=== PATIENT | male | born 1965 | race Caucasian/White ===

== ENCOUNTER 2016-02-23 10:52 | Observation (INO) | payer BC ==
[2016-02-23] VITALS (8 sets, daily range): BP systolic 103–130; BP diastolic 33–76; PULSE 70–84; TEMP 37.1–37.9; O2SAT 92–99; Ht 170.2 cm; Wt 127.3 kg
[~2016-02-23] VITALS: Ht 170.2 cm; Wt 127.3 kg
[~2016-02-23 10:52] MED LIST: IBUP-103 PO
[2016-02-23] MEDS ORDERED: HYDROmorphone INJ 1 MG/ML SYR IV STA (11:01)
[2016-02-23] MEDS ORDERED: ONDANSETRON INJ 2 MG/ML 2 ML VIAL IV STA (11:01)
[2016-02-23] MEDS ORDERED: KETOROLAC TROMETHAMINE 30 MG/ML VIAL IV STA (11:01)
[2016-02-23] MEDS ORDERED: SODIUM CHLORIDE 0.9% 1000ML 1,000 ML IV STA (11:01)
[2016-02-23 11:28] LABS: BASO % 0.4 %; BASO ABS # 0.05 K/uL (0-0.2); COMPLETE YES; EOS % 0.4 %; HEMATOCRIT 46.9 % (42-52); IG% 0.3 %; LYMPH % 6.8 %; LYMPH ABS # 0.96 K/uL (1.2-3.4); MEAN CELL VOLUME 84.1 fL (80-100); MEAN CORPUSCULAR HGB CONC 34.5 g/dl (32-36); MEAN PLATELET VOLUME 9.3 fL (7.4-10.4); MONO % 9.4 %; NEUT % 82.7 %; PLATELET COUNT 309 K/uL (130-400); RED BLOOD COUNT 5.58 M/uL (4.7-6.1); WHITE BLOOD COUNT 14.05 K/uL (4.8-10.8)
[2016-02-23] MEDS ORDERED: OPTIRAY 320 IV PRN (11:30)
[2016-02-23 11:46] LABS: BUN/CREATININE RATIO 10.8 (10-20); CALCIUM 8.8 mg/dl (8.5-10.1); CREATININE 1.1 mg/dl (0.60-1.40); POTASSIUM 3.9 mmol/L (3.5-5.1)
--- NOTE | 2016-02-23 12:26 | DIAGNOSTIC IMAGING REPORT ---
ABDOMINAL ULTRASOUND, RIGHT UPPER QUADRANT HISTORY: h/o gallstones, epigastric pain. COMPARISON: Abdomen and pelvis CT 05/01/2015. FINDINGS: Pancreas: Obscured by overlying bowel gas. Liver: The liver is echogenic consistent with fatty change. Gallbladder: There are few small stones and sludge within the gallbladder. The technologist reported a negative sonographic Velásquez's sign. The gallbladder wall is borderline thickened. CBD: 6 mm. Right kidney: No hydronephrosis. IMPRESSION: 1. Borderline gallbladder wall thickening. There are few small stones and sludge within the gallbladder. 2. Normal caliber common bile duct measuring 6 mm. 3. Hepatic steatosis. 4. The pancreas was obscured by overlying bowel gas. Electronically signed by: Kaveh Gray M.D. 02/23/2016 12:24 PM Dictated Date/Time: 02/23/2016 12:21 PM
[2016-02-23 14:12] LABS: URINE APPEARANCE CLEAR (CLEAR); URINE BILIRUBIN NEG (NEG); URINE COLOR YELLOW; URINE NITRITE NEG (NEG); URINE SPECIFIC GRAVITY 1.013 (1.000-1.030); UROBILINOGEN NEG (NEG)
[2016-02-23 14:16] LABS: MANUAL MICROSCOPIC REQUIRED? NO; REVIEW REQ? NO
--- NOTE | 2016-02-23 14:16 | History and Physical ---
History & Physical Date & Time of Service: Feb 23, 2016 at 14:11 Chief Complaint: Stomach Pain Primary Care Physician: Mike Escobar M.D.(ALE) History of Present Illness 50 y/o wm with a several mos hx of epigastric/ruq pain after eating. has know gallstones. came to ER b/c this was the worst attack and it didn't subside Past Medical/Surgical History Medical Problems: (1) Diverticulitis Status: Chronic (2) Herniated cervical disc Status: Chronic Family History Patient reports no known family medical history. Social History Smoking Status: Never Smoker Smokeless Tobacco Use: Yes Alcohol Use: none Drug Use: none Occupational Status: employed Multi-Drug Resistant Organisms History of MDRO: No Allergies Coded Allergies: Ciprofloxacin (Verified Adverse Reaction, Unknown, nausea and vomiting, 02/23/16) Metronidazole (Verified Adverse Reaction, Unknown, nausea and vomiting, 02/23/16) Home Medications No Active Prescriptions or Reported Meds Review of Systems Abdomen: + nausea, + pain Physical Exam Vital Signs Date Time Temp Pulse Resp B/P Pulse Ox O2 Delivery O2 Flow Rate FiO2 02/23/16 13:39 74 20 157/67 98 Room Air 02/23/16 12:29 76 20 172/70 96 Room Air 02/23/16 10:54 37.5 81 18 139/76 95 General Appearance: no apparent distress Head: normocephalic, atraumatic Eyes: EOMI ENT: normal ENT inspection Neck: supple, no adenopathy Respiratory/Chest: lungs clear Cardiovascular: regular rate, rhythm, no edema Abdomen/GI: soft, + pertinent finding (RUQ/epigastic TTP. no g/r/r) Back: normal inspection Extremities/Musculoskelatal: normal inspection, no pedal edema Neurologic/Psych: no motor/sensory deficits, alert, oriented x 3 Skin: normal color, warm/dry Lymphatic: no adenopathy Diagnostics Laboratory Results Results Past 24 Hours Test 02/23/16 11:15 02/23/16 13:45 Range/Units White Blood Count 14.05 4.8-10.8 K/uL Red Blood Count 5.58 4.7-6.1 M/uL Hemoglobin 16.2 14.0-18.0 g/dL Hematocrit 46.9 42-52 % Mean Corpuscular Volume 84.1 80-100 fL Mean Corpuscular Hemoglobin 29.0 25-34 pg Mean Corpuscular Hemoglobin Concent 34.5 32-36 g/dl Platelet Count 309 130-400 K/uL Mean Platelet Volume 9.3 7.4-10.4 fL Neutrophils (%) (Auto) 82.7 % Lymphocytes (%) (Auto) 6.8 % Monocytes (%) (Auto) 9.4 % Eosinophils (%) (Auto) 0.4 % Basophils (%) (Auto) 0.4 % Neutrophils # (Auto) 11.63 1.4-6.5 K/uL Lymphocytes # (Auto) 0.96 1.2-3.4 K/uL Monocytes # (Auto) 1.32 0.11-0.59 K/uL Eosinophils # (Auto) 0.05 0-0.5 K/uL Basophils # (Auto) 0.05 0-0.2 K/uL RDW Standard Deviation 41.7 36.4-46.3 fL RDW Coefficient of Variation 13.6 11.5-14.5 % Immature Granulocyte % (Auto) 0.3 % Immature Granulocyte # (Auto) 0.04 0.00-0.02 K/uL Sodium Level 142 136-145 mmol/L Potassium Level 3.9 3.5-5.1 mmol/L Chloride Level 103 98-107 mmol/L Carbon Dioxide Level 28 21-32 mmol/L Anion Gap 11.0 3-11 mmol/L Blood Urea Nitrogen 12 7-18 mg/dl Creatinine 1.10 0.60-1.40 mg/dl Est Creatinine Clear Calc Drug Dose 101.8 ml/min Estimated GFR () 89.6 Estimated GFR (Non- 77.3 BUN/Creatinine Ratio 10.8 10-20 Random Glucose 113 70-99 mg/dl Calcium Level 8.8 8.5-10.1 mg/dl Total Bilirubin 0.8 0.2-1 mg/dl Direct Bilirubin 0.2 0-0.2 mg/dl Aspartate Amino Transf (AST/SGOT) 17 15-37 U/L Alanine Aminotransferase (ALT/SGPT) 36 12-78 U/L Alkaline Phosphatase 71 45-117 U/L Total Protein 7.3 6.4-8.2 gm/dl Albumin 3.9 3.4-5.0 gm/dl Lipase 201 73-393 U/L other (US: gallstones and thickened GB wall) Impression Assessment and Plan 1. acute calculous cholecystitis discussed options/risks ( bleeding/infection/dvt/pe/mi/injury to bile ducts or other organs etc...) answered questions he would like to proceed with lap vi/poss open VTE Prophylaxis VTE Risk Assessment Done? Y/N: Yes Risk Level: Low Given or contraindicated: Unfractionated heparin SQ, SCD's
[2016-02-23] MEDS: LACTATED RINGER'S 1000ML 1,000 ML IV SCH ×2 (14:17→22:12)
[2016-02-23] MEDS ORDERED: LIDOCAINE HCL 2% 2 ML VIAL (20MG/ML) ONE (14:30)
[2016-02-23] MEDS ORDERED: DEXAMETHASONE SOD INJ 4 MG/ML VIAL ONE (14:30)
[2016-02-23] MEDS ORDERED: PROPOFOL IV EMULSION 10 MG/ML 20 ML VIAL IV ONE (14:30)
[2016-02-23] MEDS ORDERED: ROCURONIUM BROMIDE 10 MG/ML 5 ML VIAL ONE (14:30)
[2016-02-23] MEDS ORDERED: ONDANSETRON INJ 2 MG/ML 2 ML VIAL ONE (14:30)
[2016-02-23] MEDS ORDERED: MIDAZOLAM HCL 1 MG/ML 2ML VIAL ONE (14:30)
[2016-02-23] MEDS ORDERED: FENTANYL CITRATE INJ 50 MCG/1 ML 2 ML VIAL ONE ×2 (14:30)
--- NOTE | 2016-02-23 14:33 | Discharge Instructions ---
Discharge Instructions Admission Reason for Admission: Stomach Pain Discharge Discharge Diagnosis / Problem: acute cholecystitis Discharge Goals Goal(s): Decrease discomfort, Improve function Activity Recommendations Activity Limitations: as noted below Lifting Limitations: no more than 10 pounds Exercise/Sports Limitations: until after follow-up appointment Shower/Bathe: tomorrow . Instructions / Follow-Up Instructions / Follow-Up call [phone] for f/u appointment with Dr. Ramirez in 1-2 weeks Current Hospital Diet Patient's current hospital diet: Discharge Diet Recommended Diet: Regular Diet Pending Studies Studies pending at discharge: yes (pathology report) List of pending studies: path report Medical Emergencies . Who to Call and When: Medical Emergencies: If at any time you feel your situation is an emergency, please call 911 immediately. . Non-Emergent Contact Non-Emergency issues call your: Primary Care Provider, Surgeon Call Non-Emergent contact if: temperature is above 101, your pain is not controlled, wound has increased drainage, wound has increased redness . "Provider Documentation" section prepared by Nabor Ramirez. VTE Core Measure Inpt VTE Proph given/why not?: Unfractionated heparin SQ, SCD's
[2016-02-23] MEDS ORDERED: HYDR-5688 PO (14:34)
[2016-02-23] MEDS ORDERED: ONDANSETRON INJ 2 MG/ML 2 ML VIAL IV PRN ×2 (14:45→16:30)
[2016-02-23] MEDS ORDERED: ATROPINE SULFATE 0.1 MG/ML 5ML SYR IV PRN (14:45)
[2016-02-23] MEDS ORDERED: PHENYLEPHRINE 100MCG/ML 5ML SYR IV PRN (14:45)
[2016-02-23] MEDS ORDERED: EpHEDrine SULFATE INJ 50 MG/ML AMP IV PRN (14:45)
[2016-02-23] MEDS ORDERED: HYDROmorphone INJ 2 MG/ML SYR/VIAL IV PRN (14:45)
[2016-02-23] MEDS ORDERED: CEFAZOLIN SOD 1 GM VIAL ONE (14:54)
[2016-02-23] MEDS ORDERED: IV FLUIDS COMPLETED PRN (15:00)
[2016-02-23] MEDS ORDERED: HEPARIN SOD 5000 UNIT/0.5 ML CARP SQ SCH (15:00)
[2016-02-23] MEDS ORDERED: BUPIVACAINE/EPINEPHRINE 0.5% MPF 1:200,000 30 ML VIAL INJ ONE (16:04)
[2016-02-23] MEDS ORDERED: LACTATED RINGER'S 1000ML 1,000 ML IV SCH (16:19)
--- NOTE | 2016-02-23 16:24 | Anesthesiology Progress Note ---
Anesthesia Post Op Note Date & Time Feb 23, 2016 at 16:24 Vital Signs Pain Intensity: 3.0 Vital Signs Past 12 Hours Date Time Temp Pulse Resp B/P Pulse Ox O2 Delivery O2 Flow Rate FiO2 02/23/16 14:30 67 20 115/59 99 02/23/16 14:10 67 20 115/59 96 Room Air 02/23/16 13:39 74 20 157/67 98 Room Air 02/23/16 12:29 76 20 172/70 96 Room Air 02/23/16 10:54 37.5 81 18 139/76 95 Notes Mental Status: alert / awake / arousable, participated in evaluation Pt Amnestic to Procedure: Yes Nausea / Vomiting: adequately controlled Pain: adequately controlled Airway Patency, RR, SpO2: stable & adequate BP & HR: stable & adequate Hydration State: stable & adequate Anesthetic Complications: no major complications apparent
[2016-02-23] MEDS ORDERED: IBUPROFEN 600 MG TAB PO PRN (16:30)
[2016-02-23] MEDS ORDERED: MoRPHine SULFATE 4 MG/ML 1 ML CARP\\VIAL IV PRN (16:30)
[2016-02-23] MEDS ORDERED: OXYCODONE/ACETAMINOPHEN 5-325 TAB PO PRN (16:30)
[2016-02-23] MEDS ORDERED: MoRPHine SULFATE 10 MG/ML CARP/VIAL IV PRN (16:30)
--- NOTE | 2016-02-23 16:42 | [facility] Operative Report ---
Operative Report Operative Date Feb 23, 2016. Pre-Operative Diagnosis Acute calculous cholecystitis Post-Operative Diagnosis acute cholecystitis Procedure(s) Performed lap vi Surgeon Dr. Ramirez Estimated Blood Loss 30 ml Findings acutely inflammed gallbladder Specimens A: gallbladder Anesthesia GET Complication(s) None Disposition Recovery Room / PACU I attest to the content of the Intraoperative Record and any orders documented therein. Any exceptions are noted below.
[2016-02-23 17:25] LABS: PROTHROMBIN TIME (PATIENT) 11.1 SECONDS (9.0-12.0)
--- NOTE | 2016-02-23 17:38 | EMERGENCY ROOM VISIT NOTE ---
History Report prepared by Armando: Ria Nolan Under the Supervision of: Dr. Sherry Gabriel M.D. 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 He rates his pain as an 8/10 in severity. He notes, "I have 2 gallstones." He has not seen a surgeon for this. He is also experiencing nausea and vomiting. He denies chest pain. He has personal history of diverticulitis. 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 A total of 10 systems reviewed and were otherwise negative. Past Medical & Surgical Medical Problems: (1) Cholecystitis, acute (2) Diverticulitis (3) Herniated cervical disc Family History Patient reports no known family medical history. Social History Smoking Status: Unknown if Ever Smoked Alcohol Use: none Marital Status: Housing Status: lives with significant other Occupation Status: employed Current/Historical Medications Scheduled PRN Hydrocodone/Acetaminophen 5MG/325MG (Joppa 5MG/325MG), 1 TABLET PO Q4H PRN for Pain Allergies Coded Allergies: Ciprofloxacin (Verified Adverse Reaction, Unknown, nausea and vomiting, 02/23/16) Metronidazole (Verified Adverse Reaction, Unknown, nausea and vomiting, 02/23/16) Physical Exam Vital Signs Date Time Temp Pulse Resp B/P Pulse Ox O2 Delivery O2 Flow Rate FiO2 02/23/16 14:10 67 20 115/59 96 Room Air 02/23/16 13:39 74 20 157/67 98 Room Air 02/23/16 12:29 76 20 172/70 96 Room Air 02/23/16 10:54 37.5 81 18 139/76 95 Physical Exam CONSTITUTIONAL: The patient is in moderate painful and nauseous distress. HEENT: No icterus, moist mucous membranes NECK: No meningismus, trachea is midline. CARDIOVASCULAR: Regular rate, normal perfusion RESPIRATORY: Unlabored breathing. Clear to auscultation. GASTROINTESTINAL: Moderate to severe epigastric pain. GENITOURINARY: No flank tenderness MUSCULOSKELETAL: Full range of motion NEUROLOGIC: No acute gross focal deficits. PSYCHIATRIC: Normal affect SKIN: Normal for ethnicity. Medical Decision & Procedures ER Provider Diagnostic Interpretation: Radiology results as stated below per my review and radiologist interpretation. ABDOMINAL ULTRASOUND, RIGHT UPPER QUADRANT HISTORY: h/o gallstones, epigastric pain. COMPARISON: Abdomen and pelvis CT 05/01/2015. FINDINGS: Pancreas: Obscured by overlying bowel gas. Liver: The liver is echogenic consistent with fatty change. Gallbladder: There are few small stones and sludge within the gallbladder. The technologist reported a negative sonographic Velásquez's sign. The gallbladder wall is borderline thickened. CBD: 6 mm. Right kidney: No hydronephrosis. IMPRESSION: 1. Borderline gallbladder wall thickening. There are few small stones and sludge within the gallbladder. 2. Normal caliber common bile duct measuring 6 mm. 3. Hepatic steatosis. 4. The pancreas was obscured by overlying bowel gas. Electronically signed by: Kaveh Gray M.D. 02/23/2016 12:24 PM Dictated Date/Time: 02/23/2016 12:21 PM Laboratory Results 02/23/16 11:15 Red Blood Count 5.58, Mean Corpuscular Volume 84.1, Mean Corpuscular Hemoglobin 29.0, Mean Corpuscular Hemoglobin Concent 34.5, Mean Platelet Volume 9.3, Neutrophils (%) (Auto) 82.7, Lymphocytes (%) (Auto) 6.8, Monocytes (%) (Auto) 9.4, Eosinophils (%) (Auto) 0.4, Basophils (%) (Auto) 0.4, Neutrophils # (Auto) 11.63, Lymphocytes # (Auto) 0.96, Monocytes # (Auto) 1.32, Eosinophils # (Auto) 0.05, Basophils # (Auto) 0.05 02/23/16 11:15 Test 02/23/16 11:15 02/23/16 13:45 White Blood Count 14.05 K/uL (4.8-10.8) Red Blood Count 5.58 M/uL (4.7-6.1) Hemoglobin 16.2 g/dL (14.0-18.0) Hematocrit 46.9 % (42-52) Mean Corpuscular Volume 84.1 fL (80-100) Mean Corpuscular Hemoglobin 29.0 pg (25-34) Mean Corpuscular Hemoglobin Concent 34.5 g/dl (32-36) Platelet Count 309 K/uL (130-400) Mean Platelet Volume 9.3 fL (7.4-10.4) Neutrophils (%) (Auto) 82.7 % Lymphocytes (%) (Auto) 6.8 % Monocytes (%) (Auto) 9.4 % Eosinophils (%) (Auto) 0.4 % Basophils (%) (Auto) 0.4 % Neutrophils # (Auto) 11.63 K/uL (1.4-6.5) Lymphocytes # (Auto) 0.96 K/uL (1.2-3.4) Monocytes # (Auto) 1.32 K/uL (0.11-0.59) Eosinophils # (Auto) 0.05 K/uL (0-0.5) Basophils # (Auto) 0.05 K/uL (0-0.2) RDW Standard Deviation 41.7 fL (36.4-46.3) RDW Coefficient of Variation 13.6 % (11.5-14.5) Immature Granulocyte % (Auto) 0.3 % Immature Granulocyte # (Auto) 0.04 K/uL (0.00-0.02) Prothrombin Time 11.1 SECONDS (9.0-12.0) Prothromb Time International Ratio 1.0 (0.9-1.1) Activated Partial Thromboplast Time 25.2 SECONDS (21.0-31.0) Partial Thromboplastin Ratio 1.0 Anion Gap 11.0 mmol/L (3-11) Est Creatinine Clear Calc Drug Dose 101.8 ml/min Estimated GFR () 89.6 Estimated GFR (Non- 77.3 BUN/Creatinine Ratio 10.8 (10-20) Calcium Level 8.8 mg/dl (8.5-10.1) Total Bilirubin 0.8 mg/dl (0.2-1) Direct Bilirubin 0.2 mg/dl (0-0.2) Aspartate Amino Transf (AST/SGOT) 17 U/L (15-37) Alanine Aminotransferase (ALT/SGPT) 36 U/L (12-78) Alkaline Phosphatase 71 U/L (45-117) Total Protein 7.3 gm/dl (6.4-8.2) Albumin 3.9 gm/dl (3.4-5.0) Lipase 201 U/L (73-393) Urine Color YELLOW Urine Appearance CLEAR (CLEAR) Urine pH 5.0 (4.5-7.5) Urine Specific [place] 1.013 (1.000-1.030) Urine Protein NEG (NEG) Urine Glucose (UA) NEG (NEG) Urine Ketones NEG (NEG) Urine Occult Blood NEG (NEG) Urine Nitrite NEG (NEG) Urine Bilirubin NEG (NEG) Urine Urobilinogen NEG (NEG) Urine Leukocyte Esterase NEG (NEG) Labs reviewed by ED physician. Medications Administered Medications (Trade) Dose Ordered Sig/Bozena Route Start Time Stop Time Status Last Admin Dose Admin Hydromorphone HCl 1 mg 1 mg PRN STAT IV 02/23/16 11:01 02/23/16 11:03 DC 02/23/16 11:28 1 MG Sodium Chloride (Nss 1000ml) 1,000 ml @ 0 mls/hr Q0M STAT IV 02/23/16 11:01 02/23/16 11:03 DC 02/23/16 11:27 0 MLS/HR Ondansetron HCl (Zofran Inj) 4 mg NOW STAT IV 02/23/16 11:01 02/23/16 11:03 DC 02/23/16 11:27 4 MG Ketorolac Tromethamine (Toradol Inj) 30 mg NOW STAT IV 02/23/16 11:01 02/23/16 11:03 DC 02/23/16 11:28 30 MG ED Course 1059: Past medical records reviewed. The patient was evaluated in room A12B. A complete history and physical examination was performed. 1101: Toradol 30 mg IV, Zofran 4 mg IV, NSS 1000 ml wide open IV, Dilaudid 1 mg IV - PRN 1308: At this time I spoke with Dr. Ramirez of general surgery. We discussed the patient's results and treatment plan. He will evaluate the patient for further management. 1322: I reassessed the patient at this time. He is resting comfortably. I discussed the results and treatment plan with the patient. I answered all pertaining questions that he had. He expressed understanding and verbalized agreement. Medical Decision Differential diagnoses includes pancreatitis, cholecystitis, choledocholithiasis. 50-year-old with known history of gallstones presented to the emergency room for acute onset of moderate to severe epigastric and right upper quadrant pain associated with nausea and over the last day. He was noted to have an elevated white blood cell count as well as concerning ultrasound. Case was discussed with surgery on-call, Dr. Ramirez, who came to the ER to evaluate patient and make disposition. Impression Primary Impression: RUQ abdominal pain Additional Impression: Gallstone Scribe Attestation The scribe's documentation has been prepared under my direction and personally reviewed by me in its entirety. I confirm that the note above accurately reflects all work, treatment, procedures, and medical decision making performed by me. Departure Information Dispostion Being Evaluated By Surgeon Prescriptions Hydrocodone/Acetaminophen 5MG/325MG (Joppa 5MG/325MG) Tab 1 TABLET PO Q4H Y for Pain, #40 TAB Prov: Nabor Ramirez D.O. 02/23/16 Referrals No Doctor, Assigned (PCP) Patient Instructions A Signature Page
--- NOTE | 2016-02-23 19:02 | OPERATIVE REPORT ---
DATE OF OPERATION: 02/23/2016 PREOPERATIVE DIAGNOSIS: Acute cholecystitis. POSTOPERATIVE DIAGNOSIS: Same. PROCEDURE: Laparoscopic cholecystectomy. SURGEON: James. COMPLICATIONS: No immediate. ANESTHESIA: General. ESTIMATED BLOOD LOSS: 30 mL. OPERATIVE NOTE: After informed consent was obtained, the patient was taken to the operating suite, placed in supine position. After successful intubation, the abdomen was shaved and sterilely prepped and draped in usual fashion. A periumbilical incision made with an 11 blade scalpel and carried down through the soft tissue using electrocautery. The anterior rectus fascia was opened using electrocautery and two #0 Vicryl stay sutures were placed. Peritoneum was entered using blunt finger penetration. A finger sweep was performed to take down adhesions. A 12 mm Des trocar was placed and the abdomen was insufflated to 18 mmHg. Laparoscope was inserted and the abdomen examined 360 degrees. We placed a subxiphoid 5 mm port and 2 right upper quadrant 5 mm ports. The patient was placed in reverse Trendelenburg position slightly airplaned to the left. The gallbladder was very thickened and inflamed. We used a needle to drain some of the fluid out. We then grasped the gallbladder and elevated it superiorly and laterally. I used a [place] dissector as well as a suction display associate to gently tease down adhesions around the neck of the gallbladder. There was a rather anterior cystic artery and I was able to skeletonize this, clip it twice proximally once distally and transected using laparoscopic scissor. Once I did this, I was then able to slowly skeletonize the cystic duct as well. It was clipped 3 times proximally and one time distally and transected. The gallbladder was removed from the gallbladder fossa intact using an electrocautery. A small amount of bile did come out of one of the grasper hole site. We immediately suctioned this up and irrigated the right upper quadrant. Once it was discovered from the liver bed, we put into an EndoCatch bag. We thoroughly irrigated the right upper quadrant. At the end of the procedure, there was adequate hemostasis and no evidence of a bile leak. We did look around the abdomen briefly and saw no other gross abnormalities. The gallbladder was put into an EndoCatch bag and removed from the camera port site. All the trocars were removed and the abdomen was desufflated. The fascia of the camera port was closed using 0 Vicryl in a [id number] fashion. All wounds were irrigated and closed using 4-0 Monocryl. Marcaine was injected around them for postoperative analgesia and skin glue used as a dressing. The patient was awakened, extubated, and transferred to recovery in stable condition. I attest to the content of the Intraoperative Record and any orders documented therein. Any exceptio ns are noted below.
[2016-02-23] MEDS: CEFAZOLIN IV 1,000 MG in DEXTROSE 5% 50ML 50 ML IV SCH (21:30)
[2016-02-24 03:27] VITALS: BP 104/61; PULSE 72; TEMP 37.4; O2SAT 94
[2016-02-24] MEDS: CEFAZOLIN IV 1,000 MG in DEXTROSE 5% 50ML 50 ML IV SCH (05:27)
[2016-02-24] MEDS: LACTATED RINGER'S 1000ML 1,000 ML IV SCH (05:27)
[2016-02-24 07:46] VITALS: BP 121/71; PULSE 67; TEMP 37.4; O2SAT 91
[2016-02-24] MEDS ORDERED: ENOXAPARIN 40 MG/0.4 ML SYR SQ SCH (09:00)
--- NOTE | 2016-02-24 10:58 | Surgery Progress Note ---
Surgery Progress Note Date of Service Feb 24, 2016. Subjective Post OP Day: 1 + feeling well, + pain controlled feels well. eating. no issues. Objective Vital Signs: Date Time Temp Pulse Resp B/P Pulse Ox O2 Delivery O2 Flow Rate FiO2 02/24/16 07:46 37.4 67 18 121/71 91 Room Air 02/24/16 07:35 Room Air 02/24/16 03:27 37.4 72 16 104/61 94 BiPAP 02/24/16 00:36 Room Air 02/23/16 22:57 37.1 76 18 103/64 92 CPAP 02/23/16 20:30 37.5 84 18 124/70 93 Room Air 02/23/16 19:15 37.2 78 18 125/76 93 Room Air 02/23/16 18:25 37.4 73 20 130/73 96 02/23/16 18:00 Nasal Cannula 2.0 02/23/16 17:55 Nasal Cannula 2.0 02/23/16 17:49 37.2 70 20 114/66 97 02/23/16 17:41 37.9 74 20 107/73 Nasal Cannula 2.0 02/23/16 17:15 37.7 75 16 113/33 98 Nasal Cannula 2.0 02/23/16 17:00 74 20 107/73 97 Room Air 02/23/16 16:50 37.9 77 17 118/53 96 Room Air 02/23/16 16:40 77 16 141/73 98 Room Air 02/23/16 16:30 73 18 141/78 100 Mask 10 02/23/16 16:20 37.0 76 14 146/89 100 Mask 10 02/23/16 14:30 67 20 115/59 99 02/23/16 14:10 67 20 115/59 96 Room Air 02/23/16 13:39 74 20 157/67 98 Room Air 02/23/16 12:29 76 20 172/70 96 Room Air General Appearance: no apparent distress Head: normocephalic Abdomen: non tender, soft Incision(s): clean, dry, intact Laboratory Results: Results Past 24 Hours Test 02/23/16 11:15 02/23/16 13:45 Range/Units White Blood Count 14.05 4.8-10.8 K/uL Red Blood Count 5.58 4.7-6.1 M/uL Hemoglobin 16.2 14.0-18.0 g/dL Hematocrit 46.9 42-52 % Mean Corpuscular Volume 84.1 80-100 fL Mean Corpuscular Hemoglobin 29.0 25-34 pg Mean Corpuscular Hemoglobin Concent 34.5 32-36 g/dl Platelet Count 309 130-400 K/uL Mean Platelet Volume 9.3 7.4-10.4 fL Neutrophils (%) (Auto) 82.7 % Lymphocytes (%) (Auto) 6.8 % Monocytes (%) (Auto) 9.4 % Eosinophils (%) (Auto) 0.4 % Basophils (%) (Auto) 0.4 % Neutrophils # (Auto) 11.63 1.4-6.5 K/uL Lymphocytes # (Auto) 0.96 1.2-3.4 K/uL Monocytes # (Auto) 1.32 0.11-0.59 K/uL Eosinophils # (Auto) 0.05 0-0.5 K/uL Basophils # (Auto) 0.05 0-0.2 K/uL RDW Standard Deviation 41.7 36.4-46.3 fL RDW Coefficient of Variation 13.6 11.5-14.5 % Immature Granulocyte % (Auto) 0.3 % Immature Granulocyte # (Auto) 0.04 0.00-0.02 K/uL Prothrombin Time 11.1 9.0-12.0 SECONDS Prothromb Time International Ratio 1.0 0.9-1.1 Activated Partial Thromboplast Time 25.2 21.0-31.0 SECONDS Partial Thromboplastin Ratio 1.0 Sodium Level 142 136-145 mmol/L Potassium Level 3.9 3.5-5.1 mmol/L Chloride Level 103 98-107 mmol/L Carbon Dioxide Level 28 21-32 mmol/L Anion Gap 11.0 3-11 mmol/L Blood Urea Nitrogen 12 7-18 mg/dl Creatinine 1.10 0.60-1.40 mg/dl Est Creatinine Clear Calc Drug Dose 101.8 ml/min Estimated GFR () 89.6 Estimated GFR (Non- 77.3 BUN/Creatinine Ratio 10.8 10-20 Random Glucose 113 70-99 mg/dl Calcium Level 8.8 8.5-10.1 mg/dl Total Bilirubin 0.8 0.2-1 mg/dl Direct Bilirubin 0.2 0-0.2 mg/dl Aspartate Amino Transf (AST/SGOT) 17 15-37 U/L Alanine Aminotransferase (ALT/SGPT) 36 12-78 U/L Alkaline Phosphatase 71 45-117 U/L Total Protein 7.3 6.4-8.2 gm/dl Albumin 3.9 3.4-5.0 gm/dl Lipase 201 73-393 U/L Urine Color YELLOW Urine Appearance CLEAR CLEAR Urine pH 5.0 4.5-7.5 Urine Specific [place] 1.013 1.000-1.030 Urine Protein NEG NEG Urine Glucose (UA) NEG NEG Urine Ketones NEG NEG Urine Occult Blood NEG NEG Urine Nitrite NEG NEG Urine Bilirubin NEG NEG Urine Urobilinogen NEG NEG Urine Leukocyte Esterase NEG NEG Assessment & Plan doing very well pod #1. ok for d/c instructions given
[2016-02-24 12:20] VITALS: BP 114/67; PULSE 74; TEMP 37.5; O2SAT 92
[2016-02-24 12:36] VITALS: BP 114/67; PULSE 74; TEMP 37.5; O2SAT 92
--- NOTE | 2016-02-25 15:27 | DISCHARGE SUMMARY ---
PRIMARY DISCHARGE DIAGNOSIS: Cholelithiasis with acute cholecystitis. PROCEDURE PERFORMED: Laparoscopic cholecystectomy. HOSPITAL COURSE: The patient is a 50-year-old male who presented to the Emergency Department with right upper quadrant pain, nausea and vomiting with a known history of gallstones. His white count was 14,000. Ultrasound showed some wall thickening along with sludge and small stones. He was taken to the operating room that afternoon for laparoscopic cholecystectomy. The procedure was well tolerated. He was returned to the surgical floor. On postoperative day 1, he was tolerating diet and oral analgesics. His incisions were clean and dry. He remained afebrile. He was stable for discharge. DISCHARGE INSTRUCTIONS: Discharge home. Follow up with Dr. Ramirez in 2 weeks. DISCHARGE MEDICATIONS: [place] 1 tablet every 4 hours as needed. MTDD
== END 2016-02-24 13:15 | disposition home or self-care (01) ==
LOC: ENRESERVTM → ENRESERVDT → C.EDB 10:54 → C.MSN 14:21
PROVIDERS: ADMIT Surgery; ATTEND Surgery
DX: K80.12 Calculus of gallbladder with acute and chronic cholecystitis without obstruction (principal)

== ENCOUNTER 2022-06-22 08:09 | Observation (INO) ==
--- NOTE | 2022-06-22 08:41 | Emergency Department Note ---
ED Provider Note History of Present Illness Chief Complaint: Rib Injury/Pain Stated Complaint: PAIN AROUND HIS RIBS, LOWER BACK PAIN Time Seen by Provider: 06/22/22 08:28 Source: patient and family ( who is at the bedside) Mode of arrival: ambulatory Limitations: no limitations This patient is a 56-year-old male who comes in after having some pain when he takes a deep breath on the left. He was diagnosed with a left calf DVT at the [facility] on Wednesday was started on Eliquis he has been taking it without missed doses over the weekend he feels like it hurts when he takes a deep breath but does not feel short of breath. Also hurts when he moves certain ways. No fever or cough no trauma or injury. He has no swelling in his leg is not red or warm. No history of blood clots or clotting disorder. He chews but does not smoke. No recent travel. No abdominal pain. Home Medications Medication Instructions Recorded Confirmed Type CPAP Machine See Rx Instructions .Route 09/05/20 09/05/20 Rx .COMPLEX #1 ea triamcinolone acetonide 0.5 % 1 applic topical DAILY PRN Unknown 09/04/21 06/22/22 History topical cream apixaban 5 mg tablet (Eliquis) See Rx Instructions .Route .COMPLEX 06/22/22 06/22/22 History Allergies Allergy/AdvReac Type Severity Reaction Status Date / Time Cipro AdvReac Unknown nausea and Verified 08/02/17 20:23 vomiting ciprofloxacin AdvReac Unknown nausea and Verified 09/04/21 13:51 vomiting metronidazole AdvReac Unknown nausea and Verified 09/04/21 13:51 vomiting Past Med/Surg History Medical History Cholecystitis, acute Diverticulitis Dyslipidemia Herniated cervical disc Prediabetes Surgical History H/O cervical spine surgery History of cholecystectomy Hx of appendectomy Hx of cataract surgery Family History Mother Cancer Father Deep vein thrombosis Social History Smoking Status: Never smoker Second Hand Exposure: No; Do You Dip or Chew Tobacco: Yes; Tobacco Cessation Education Requested by Patient: No Hx Alcohol Use: No Hx Substance Use: No Communication Ability: Effective Beliefs That Will Affect Care: None Current Living Situation: Spouse Other Information That Helps Us Care for You: No Feels Safe at Home: Yes Safety Concerns: Feels Safe At This Time Assistive Devices: Denture - Upper Immunizations: Family historyhis father had blood clots Social historyhe chews. He is employed in maintenance at [employer]. He he is Physical Exam Vital Signs Vital Signs - 24 hr 06/22/22 08:12 06/22/22 09:03 06/22/22 08:37 Temperature 36.6 C Temperature Source Temporal Artery Scan Pulse Rate 76 70 69 Pulse Rate from SpO2 Sensor Pulse Rhythm Regular Respiratory Rate 18 16 Respiratory Effort / Characteristics Non-Labored Respiratory Depth Normal Blood Pressure 147/84 H Blood Pressure Mean 105 Blood Pressure Position Sitting Pulse Oximetry 95 93 Oxygen Delivery Method Room Air Room Air Sepsis Recent Fever Within 48 Hours No Sepsis New/Unexplained Change in Mental Status No Sepsis Action Taken by Nursing No Action Required 06/22/22 09:02 06/22/22 09:02 06/22/22 09:30 Temperature Temperature Source Pulse Rate 69 Pulse Rate from SpO2 Sensor 69 Pulse Rhythm Respiratory Rate 23 Respiratory Effort / Characteristics Respiratory Depth Blood Pressure 140/81 158/85 H Blood Pressure Mean 100 109 Blood Pressure Position Pulse Oximetry 93 Oxygen Delivery Method Sepsis Recent Fever Within 48 Hours Sepsis New/Unexplained Change in Mental Status Sepsis Action Taken by Nursing 06/22/22 09:30 Temperature Temperature Source Pulse Rate 65 Pulse Rate from SpO2 Sensor 64 Pulse Rhythm Respiratory Rate 22 Respiratory Effort / Characteristics Respiratory Depth Blood Pressure Blood Pressure Mean Blood Pressure Position Pulse Oximetry 94 Oxygen Delivery Method Sepsis Recent Fever Within 48 Hours Sepsis New/Unexplained Change in Mental Status Sepsis Action Taken by Nursing General: Well developed well nourished in no acute distress, breathing comfortably on room air. Normal speech HEENT: Normal cephalic atraumatic. Pupils are equal round and reactive to lig ht. Extraocular movements are intact. Oropharynx is pink with moist mucous membranes. No swelling of the mouth lips or tongue. Neck: Supple with a midline trachea. No meningeal signs or stiffness, no JVD or bruits. No Stridor. Chest: Clear to auscultation bilaterally. No wheezes or rhonchi. No increased work of breathing. Heart: Regular rate and rhythm without murmurs or gallops. Abdomen: Soft nontender, nondistended without rebound guarding or rigidity. Extremities: No cyanosis clubbing or edema. No calf tenderness or assymetry. Just distal pulses on the left. No redness or warmth in that leg Spine/Back. Non tender to palpation. No CVA tenderness Skin: Good turgor without rashes. Neurologic exam: Cranial nerves two through 12 are intact. Motor and sensation are intact and symmetrical throughout. Course Administered Medications Discontinued Medications Ioversol (Optiray 320 500ml) 105 ml IV ONCE ONE Stop: 06/22/22 09:58 Last Admin: 06/22/22 09:49 Dose: 105 ml Documented By: AYO Medical Decision Making Differential Diagnosis Pulmonary embolism, acute coronary syndrome, arrhythmia, musculoskeletal, GI, anxiety, electrolyte or metabolic abnormality, pneumothorax, Medical Records Attestation: I reviewed the patient's medical records. Laboratory Data Attestation: I reviewed the patient's lab results. 06/22/22 08:54 06/22/22 08:55 Lab Results 06/22/22 06/22/22 06/22/22 Range/Units 08:54 08:54 08:55 WBC 11.98 H (4.8-10.8) K/ul RBC 5.61 (4.70-6.10) M/uL Hgb 16.2 (14.0-18.0) g/dl Hct 48.9 (42.0-52.0) % MCV 87.2 (80.0-100.0) fL MCH 28.9 (25.0-34.0) pg MCHC 33.1 (32.0-36.0) g/dL RDW Std Deviation 42.3 (36.4-46.3) fL RDW Coeff of Arsalan 13.2 (11.5-14.5) % Plt Count 309 (130-400) K/uL MPV 9.4 (9.4-12.4) fL Immature Gran % (Auto) 0.3 % Neut % (Auto) 71.8 % Lymph % (Auto) 12.1 % Page % (Auto) 13.3 % Eos % (Auto) 1.8 % Baso % (Auto) 0.7 % Neut # (Auto) 8.61 H (1.40-6.50) K/uL Lymph # (Auto) 1.45 (1.2-3.4) K/uL Page # (Auto) 1.59 H (0.11-0.59) K/uL Eos # (Auto) 0.21 (0-0.50) K/uL Baso # (Auto) 0.08 (0-0.2) K/uL Immature Gran # (Auto) 0.04 (0.01-0.20) K/uL PT 11.3 (9.0-12.0) Seconds INR 1.0 (0.9-1.1) APTT 29.9 (21.0-31.0) Seconds PTT Ratio 1.1 Sodium 141 (136-145) mmol/L Potassium 4.0 (3.5-5.1) mmol/L Chloride 105 (98-107) mmol/L Carbon Dioxide 30 (21-32) mmol/L Anion Gap 6 (3-11) BUN 10 (6-23) mg/dl Creatinine 1.05 (0.6-1.4) mg/dl Est Cr Clr Drug Dosing 96.4 ml/min Est GFR ( Amer) 90.9 ml/min Est GFR (Non-Af Amer) 78.4 ml/min BUN/Creatinine Ratio 9.5 L (10-20) Glucose 93 (70-99(Fasting)) mg/dl Calcium 9.3 (8.6-10.3) mg/dl Total Bilirubin 0.8 (0.2-1.0) mg/dl AST 14 (13-39) U/L ALT 19 (7-52) U/L Alkaline Phosphatase 71 (34-104) U/L Troponin I High Sens 4.1 (0-20) pg/ml Total Protein 7.0 (6.0-8.3) gm/dl Albumin 4.2 (3.4-5.0) gm/dl Globulin 2.8 (2.5-4.0) gm/dl Albumin/Globulin Ratio 1.5 (0.9-2) Lipase 21 (11-82) U/L SARS-CoV-2, RNA, NAAT (NEGATIVE) 06/22/22 Range/Units 11:02 WBC (4.8-10.8) K/ul RBC (4.70-6.10) M/uL Hgb (14.0-18.0) g/dl Hct (42.0-52.0) % MCV (80.0-100.0) fL MCH (25.0-34.0) pg MCHC (32.0-36.0) g/dL RDW Std Deviation (36.4-46.3) fL RDW Coeff of Arsalan (11.5-14.5) % Plt Count (130-400) K/uL MPV (9.4-12.4) fL Immature Gran % (Auto) % Neut % (Auto) % Lymph % (Auto) % Page % (Auto) % Eos % (Auto) % Baso % (Auto) % Neut # (Auto) (1.40-6.50) K/uL Lymph # (Auto) (1.2-3.4) K/uL Page # (Auto) (0.11-0.59) K/uL Eos # (Auto) (0-0.50) K/uL Baso # (Auto) (0-0.2) K/uL Immature Gran # (Auto) (0.01-0.20) K/uL PT (9.0-12.0) Seconds INR (0.9-1.1) APTT (21.0-31.0) Seconds PTT Ratio Sodium (136-145) mmol/L Potassium (3.5-5.1) mmol/L Chloride (98-107) mmol/L Carbon Dioxide (21-32) mmol/L Anion Gap (3-11) BUN (6-23) mg/dl Creatinine (0.6-1.4) mg/dl Est Cr Clr Drug Dosing ml/min Est GFR ( Amer) ml/min Est GFR (Non-Af Amer) ml/min BUN/Creatinine Ratio (10-20) Glucose (70-99(Fasting)) mg/dl Calcium (8.6-10.3) mg/dl Total Bilirubin (0.2-1.0) mg/dl AST (13-39) U/L ALT (7-52) U/L Alkaline Phosphatase (34-104) U/L Troponin I High Sens (0-20) pg/ml Total Protein (6.0-8.3) gm/dl Albumin (3.4-5.0) gm/dl Globulin (2.5-4.0) gm/dl Albumin/Globulin Ratio (0.9-2) Lipase (11-82) U/L SARS-CoV-2, RNA, NAAT NEGATIVE (NEGATIVE) Imaging Data Attestation: I personally reviewed and interpreted this imaging study as follows: My Impression: CT angio/PEthere are bilateral segmental PEs. Radiologist's Impression: Chest CTA 06/22/22 08:38 CT angio chest PE protocol CT DOSE: 929.95 mGy.cm HISTORY: 56 years-old Male with Chest Pain, eval for PE. Acute chest pain with shortness of breath TECHNIQUE: Multiple CTA images of the chest were obtained after the intravenous administration of 105 ml Optiray. Coronal and sagittal MIPS were obtained from the axial data set and were submitted for review. All measurements were obtained according to NASCET criteria. A dose lowering technique was utilized adhering to the principles of ALARA. COMPARISON: CT abdomen and pelvis 01/05/2018, chest CT 10/30/2015 FINDINGS: CTA: Mild/moderate cardiomegaly. Mediastinal lipomatosis. Mild to moderate coronary artery calcifications. No thoracic aortic aneurysm. Limited examination secondary to respiratory motion artifact and contrast bolus timing. Bibasilar segmental and subsegmental pulmonary emboli are most pronounced in the right middle and left lower lobes. No central pulmonary emboli or evidence of right heart strain. CT CHEST: No thyroid nodule or lymphadenopathy identified. Trace right and small left pleural effusions. No pneumothorax. Mild (right bibasilar groundglass and consolidative opacities. Benign 5 mm solid nodule in the left lower lobe, image 175 series 4 is stable from prior. No suspicious pulmonary nodules or mass is identified. Stable benign 4 mm nodule right lower lobe, image 163. Cholecystectomy. Hepatic steatosis. No acute processes of the imaged upper abdomen. Unremarkable soft tissues. Partially imaged cervical spinal fusion hardware. Degenerative changes of the shoulders and spine. IMPRESSION: 1. Bilateral segmental and subsegmental pulmonary emboli. 2. Small left and trace right pleural effusions. 3. Mild bibasilar opacities, left greater than right favor atelectasis. Small developing pulmonary infarct(s) could appear similarly. 4. Hepatic steatosis. ACT 112: Negative or not required by law. The above report was generated using voice recognition software. It may contain grammatical, syntax or spelling errors. Electronically signed by: Anil Baeza M.D. 06/22/2022 10:44 AM ECG Data Attestation: I personally reviewed and interpreted this ECG as follows: Indication: + chest pain Rate (beats per minute): 71 Rhythm: + normal sinus ECG [place]: + Normal ECG ST segments: + Normal ST segments ECG Findings: + Other (Low voltage); no PACs or no PVCs Comparison ECG Date: from (03/14/16) Change: no significant change MDM Narrative This patient comes in as described above. He was placed on a front desk monitor in room before. He was diagnosed recent with a PE and now has some pleuritic type chest pain he is not hypoxemic and looks well. The pain also seems to be with movement. His lung sounds are clear he is in no distress there is no rash to suggest shingles. Given his recent DVT history of the biggest concern would be to rule out PE. I did order an IV EKG and multiple blood testing as well as a CT angio for PE. EKG shows no acute ischemic changes or ectopy. Troponin is not elevated. Although he looks well his CT angio came back for bilateral PEs based on this I do think he needs to be admitted and consideration for changes anticoagulation to possibly. I did consult the [facility] and discussed the case with him in consultation. They came and saw the patient promptly and are going to admit the patient and choose anticoagulation choice. Continuous cardiac monitoring: An order was placed in the EMR for continuous cardiac monitoring: Upon my evaluation patient was noted to be in normal sinus rhythm with a rate of 67 Impression Bilateral pulmonary embolism, Chest pain, Acute deep vein thrombosis (DVT) of distal end of left lower extremity, Current use of fdc anticoagulation Discharge Plan Visit Data Chief Complaint: Rib Injury/Pain Stated Complaint: PAIN AROUND HIS RIBS, LOWER BACK PAIN ED Provider: Renzo Meier Discharge Problem: Bilateral pulmonary embolism, Chest pain, Acute deep vein thrombosis (DVT) of distal end of left lower extremity, Current use of [employer] anticoagulation Patient Disposition: Admitted As Inpatient Discharge Instructions Interventions: ED Discharge Assessment Last Done: 06/22/22 12:59
[2022-06-22 09:18] LABS: Basophils # (auto) 0.08 K/uL (0-0.2); Basophils % (auto) 0.7 %; Eosinophils # (auto) 0.21 K/uL (0-0.50); Eosinophils % (auto) 1.8 %; Hematocrit (blood only) 48.9 % (42.0-52.0); Hemoglobin 16.2 g/dl (14.0-18.0); Immature Granulocytes # (auto) 0.04 K/uL (0.01-0.20); Immature Granulocytes % (auto) 0.3 %; Lymphocytes # (auto) 1.45 K/uL (1.2-3.4); Lymphocytes % (auto) 12.1 %; Mean Corpuscular Hemoglobin 28.9 pg (25.0-34.0); Mean Corpuscular Hgb Conc 33.1 g/dL (32.0-36.0); Mean Corpuscular Volume 87.2 fL (80.0-100.0); Mean Platelet Volume 9.4 fL (9.4-12.4); Monocytes # (auto) 1.59 K/uL (0.11-0.59); Monocytes % (auto) 13.3 %; Neutrophils # (auto) 8.61 K/uL (1.40-6.50); Neutrophils % (auto) 71.8 %; Platelet Count 309 K/uL (130-400); RDW Coefficient of Variation 13.2 % (11.5-14.5); RDW Standard Deviation 42.3 fL (36.4-46.3); Red Blood Count 5.61 M/uL (4.70-6.10); White Blood Count 11.98 K/ul (4.8-10.8)
[2022-06-22 09:30] LABS: Albumin Globulin Ratio 1.5 (0.9-2); Albumin Level 4.2 gm/dl (3.4-5.0); BUN Creatinine Ratio 9.5 (10-20); Bilirubin,Total 0.8 mg/dl (0.2-1.0); Calcium 9.3 mg/dl (8.6-10.3); Creatinine Clr Calc Pharmacy 96.4 ml/min; Est GFR (African American) 90.9 ml/min; Est GFR (Non-African American) 78.4 ml/min; Globulin 2.8 gm/dl (2.5-4.0)
[2022-06-22 09:35] LABS: Troponin I High Sensitivity 4.1 pg/ml (0-20)
[2022-06-22 09:42] LABS: Partial Thromboplastin Ratio 1.1; Partial Thromboplastin Time 29.9 Seconds (21.0-31.0); Prothrombin Time 11.3 Seconds (9.0-12.0)
[2022-06-22] MEDS ORDERED: OPTIRAY 320 500ml IV ONE (09:57)
--- NOTE | 2022-06-22 10:45 | CT Scan Report ---
CT angio chest PE protocol CT DOSE: 929.95 mGy.cm HISTORY: 56 years-old Male with Chest Pain, eval for PE. Acute chest pain with shortness of breath TECHNIQUE: Multiple CTA images of the chest were obtained after the intravenous administration of 105 ml Optiray. Coronal and sagittal MIPS were obtained from the axial data set and were submitted for review. All measurements were obtained according to NASCET criteria. A dose lowering technique was u tilized adhering to the principles of ALARA. COMPARISON: CT abdomen and pelvis 01/05/2018, chest CT 10/30/2015 FINDINGS: CTA: Mild/moderate cardiomegaly. Mediastinal lipomatosis. Mild to moderate coronary artery calcifications. No thoracic aortic aneurysm. Limited examination secondary to respiratory motion artifact and contra st bolus timing. Bibasilar segmental and subsegmental pulmonary emboli are most pronounced in the rig ht middle and left lower lobes. No central pulmonary emboli or evidence of right heart strain. CT CHEST: No thyroid nodule or lymphadenopathy identified. Trace right and small left pleural effusions. No pne umothorax. Mild (right bibasilar groundglass and consolidative opacities. Benign 5 mm solid nodule in the left lower lobe, image 175 series 4 is stable from prior. No suspicious pulmonary nodules or mas s is identified. Stable benign 4 mm nodule right lower lobe, image 163. Cholecystectomy. Hepatic steatosis. No acute processes of the imaged upper abdomen. Unremarkable soft tissues. Partially imaged cervical spinal fusion hardware. Degenerative changes of the shoulders and spine. IMPRESSION: 1. Bilateral segmental and subsegmental pulmonary emboli. 2. Small left and trace right pleural effusions. 3. Mild bibasilar opacities, left greater than right favor atelectasis. Small developing pulmonary in farct(s) could appear similarly. 4. Hepatic steatosis. ACT 112: Negative or not required by law. The above report was generated using voice recognition software. It may contain grammatical, syntax o r spelling errors. Electronically signed by: Anil Baeza M.D. 06/22/2022 10:44 AM
--- NOTE | 2022-06-22 11:46 | History & Physical Report ---
Date of Service June 22, 2022 Assessment & Plan (1) Bilateral pulmonary embolism: Plan: 56 y/o male with a history of cervical disc disease s/p ACDF, prediabetes, and dyslipidemia who presented to the ED today with two days of thoracic/left chest pain with deep breathing after being diagnosed with peroneal DVT on Wednesday and started on Eliquis. Pt reports he has been taking the Eliquis as directed and has no prior hx of clot. CTA in the ED today revealed bilateral PE though no hypoxia, pt is hemodynamically stable. Since pt was on the Eliquis only for the last three days, would not consider this a treatment failure but rather progression of known clot. - Admit to PCU for close observation due to worsening condition over the weekend - not currently requiring O2 - Continue Eliquis - Check ECHO (2) Acute deep vein thrombosis (DVT) of distal end of left lower extremity: Plan: See Plan for #1 (3) Prediabetes: Plan: Last A1c in 2020 so will check with AM labs (4) Dyslipidemia: (5) Sleep apnea: Plan: Continue CPAP Plan Pt seen and reviewed with collaborating physician, Dr. Norwood. Plan of care discussed and as outlined above. Code Status: Full Code Chandler Mcallister PA-C History of Present Illness Chief Complaint: left sided pain with deep breathing Primary Care Provider: Kaya Mckeon MD This is a 56 y/o male with a PMH of cervical disc disease s/p ACDF, dyslipidemia, and prediabetes who presents to the ED with pain in left thoracic back and left lower chest with deep breathing for the past two days. Three days ago, on Wednesday, pt presented to PCP office with left calf pain x 3 days without specific injury or swelling. US done in office showed peroneal clot. Pt was started on Eliquis, which he reports he has been taking as prescribed although has not taken yet today. He developed a RECINOS two days ago, which he attributes as a possible side effect to the Eliquis. Ongoing, frontal region. Over the weekend, he developed pain in the left thoracic area and left lower chest with deep breathing. Denies feeling shortness of breath or sensation of heart racing or skipping beats. No prior history of DVT/PE. No recent long travel or prolonged immobilization. No recent illness. Pt's father had unexplained DVTs that were found just before surgery - no known clotting disorder. Mother had cancer but no hx of clots that pt is aware of. Allergies Allergy/AdvReac Type Severity Reaction Status Date / Time Cipro AdvReac Unknown nausea and Verified 08/02/17 20:23 vomiting ciprofloxacin AdvReac Unknown nausea and Verified 09/04/21 13:51 vomiting metronidazole AdvReac Unknown nausea and Verified 09/04/21 13:51 vomiting Home Medications Medication Instructions Recorded Confirmed Type CPAP Machine See Rx Instructions .Route 09/05/20 09/05/20 Rx .COMPLEX #1 ea triamcinolone acetonide 0.5 % 1 applic topical DAILY PRN Unknown 09/04/21 06/22/22 History topical cream apixaban 5 mg tablet (Eliquis) See Rx Instructions .Route .COMPLEX 06/22/22 06/22/22 History Past Med/Surg History Medical History Cholecystitis, acute Diverticulitis Dyslipidemia Herniated cervical disc Prediabetes Surgical History H/O cervical spine surgery History of cholecystectomy Hx of appendectomy Hx of cataract surgery Family History Mother Cancer Father Deep vein thrombosis Social History Smoking Status: Never smoker Second Hand Exposure: No; Do You Dip or Chew Tobacco: Yes; Tobacco Cessation Education Requested by Patient: No Hx Alcohol Use: No Hx Substance Use: No Communication Ability: Effective Beliefs That Will Affect Care: None Current Living Situation: Spouse Other Information That Helps Us Care for You: No Feels Safe at Home: Yes Safety Concerns: Feels Safe At This Time Assistive Devices: Denture - Upper Review of Systems Review of Systems: All systems reviewed & are unremarkable except as noted in HPI & below Constitutional: no fever, no chills, no sweats and no weight loss Eyes: no diplopia Ear, Nose, Mouth, Throat: no nasal congestion and no sore throat Respiratory: + pain on inspiration; no cough Cardiovascular: no palpitations, no lightheadedness, no syncope and no edema Gastrointestinal: no abdominal pain, no nausea, no vomiting, no diarrhea/loose stools and no blood in stools Genitourinary: no dysuria or no hematuria Musculoskeletal: no back pain, no neck pain and no joint pain Integumentary: no yellowing of the skin Neurologic: + headache(s); no generalized weakness and no dizziness Psychiatric: no depression and no anxiety Physical Exam Constitutional: well developed and well nourished; no acute distress Eyes: + anicteric sclerae Neck: trachea midline Respiratory: no respiratory distress and no labored breathing Auscultation: lungs clear to auscultation bilaterally; no rales, no rhonchi and no wheezes Cardiovascular: Rate/Rhythm: regular rate and regular rhythm Vessels: radial pulses present Extremities: no pedal edema Gastrointestinal (Abdomen): Inspection/Auscultation: normal bowel sounds; abdomen not distended Percussion/Palpation: abdomen soft; abdomen nontender Musculoskeletal: Head/Neck/Chest: normocephalic, head atraumatic and neck supple Skin: no jaundice Neurologic: moves all extremities; no focal motor deficits and not confused Psychiatric: A+Ox3, euthymic affect Results & Data Results & Data Vital Signs (Past 12 Hours) Vital Signs Temp Pulse Resp BP Pulse Ox O2 Del Method 06/22/22 09:30 65 22 94 06/22/22 09:30 158/85 H 06/22/22 09:02 69 23 93 06/22/22 09:02 140/81 06/22/22 08:37 69 16 93 Room Air 06/22/22 09:03 70 06/22/22 08:12 36.6 C 76 18 147/84 H 95 Room Air Laboratory Results Laboratory Results - last 24 hr 06/22/22 06/22/22 06/22/22 08:54 08:54 08:55 WBC 11.98 H RBC 5.61 Hgb 16.2 Hct 48.9 MCV 87.2 MCH 28.9 MCHC 33.1 RDW Std Deviation 42.3 RDW Coeff of Arsalan 13.2 Plt Count 309 MPV 9.4 Immature Gran % (Auto) 0.3 Neut % (Auto) 71.8 Lymph % (Auto) 12.1 Reeves % (Auto) 13.3 Eos % (Auto) 1.8 Baso % (Auto) 0.7 Neut # (Auto) 8.61 H Lymph # (Auto) 1.45 Reeves # (Auto) 1.59 H Eos # (Auto) 0.21 Baso # (Auto) 0.08 Immature Gran # (Auto) 0.04 PT 11.3 INR 1.0 APTT 29.9 PTT Ratio 1.1 Sodium 141 Potassium 4.0 Chloride 105 Carbon Dioxide 30 Anion Gap 6 BUN 10 Creatinine 1.05 Est Cr Clr Drug Dosing 96.4 Est GFR ( Amer) 90.9 Est GFR (Non-Af Amer) 78.4 BUN/Creatinine Ratio 9.5 L Glucose 93 Calcium 9.3 Total Bilirubin 0.8 AST 14 ALT 19 Alkaline Phosphatase 71 Troponin I High Sens 4.1 Total Protein 7.0 Albumin 4.2 Globulin 2.8 Albumin/Globulin Ratio 1.5 Lipase 21 Diagnostic Findings Chest CTA 06/22/22 08:38 CT angio chest PE protocol CT DOSE: 929.95 mGy.cm HISTORY: 56 years-old Male with Chest Pain, eval for PE. Acute chest pain with shortness of breath TECHNIQUE: Multiple CTA images of the chest were obtained after the intravenous administration of 105 ml Optiray. Coronal and sagittal MIPS were obtained from the axial data set and were submitted for review. All measurements were obtained according to NASCET criteria. A dose lowering technique was utilized adhering to the principles of ALARA. COMPARISON: CT abdomen and pelvis 01/05/2018, chest CT 10/30/2015 FINDINGS: CTA: Mild/moderate cardiomegaly. Mediastinal lipomatosis. Mild to moderate coronary artery calcifications. No thoracic aortic aneurysm. Limited examination secondary to respiratory motion artifact and contrast bolus timing. Bibasilar segmental and subsegmental pulmonary emboli are most pronounced in the right middle and left lower lobes. No central pulmonary emboli or evidence of right heart strain. CT CHEST: No thyroid nodule or lymphadenopathy identified. Trace right and small left pleural effusions. No pneumothorax. Mild (right bibasilar groundglass and con solidative opacities. Benign 5 mm solid nodule in the left lower lobe, image 175 series 4 is stable from prior. No suspicious pulmonary nodules or mass is identified. Stable benign 4 mm nodule right lower lobe, image 163. Cholecystectomy. Hepatic steatosis. No acute processes of the imaged upper abdomen. Unremarkable soft tissues. Partially imaged cervical spinal fusion hardware. Degenerative changes of the shoulders and spine. IMPRESSION: 1. Bilateral segmental and subsegmental pulmonary emboli. 2. Small left and trace right pleural effusions. 3. Mild bibasilar opacities, left greater than right favor atelectasis. Small developing pulmonary infarct(s) could appear similarly. 4. Hepatic steatosis. Medications Administered Discontinued Medications Ioversol (Optiray 320 500ml) 105 ml IV ONCE ONE Stop: 06/22/22 09:58 Last Admin: 06/22/22 09:49 Dose: 105 ml Documented By: Supervising Physician Co-Signing Physician Notes Reviewed findings with physician social work assistant . Plan of care discussed with patient. Patient has been noted to have bilateral segmental PE. will continue eliquis for now . Laboratory Results WBC 11.98 K/ul (4.8-10.8) H 06/22/22 08:54 RBC 5.61 M/uL (4.70-6.10) 06/22/22 08:54 Hgb 16.2 g/dl (14.0-18.0) 06/22/22 08:54 Hct 48.9 % (42.0-52.0) 06/22/22 08:54 MCV 87.2 fL (80.0-100.0) 06/22/22 08:54 MCH 28.9 pg (25.0-34.0) 06/22/22 08:54 MCHC 33.1 g/dL (32.0-36.0) 06/22/22 08:54 RDW Std Deviation 42.3 fL (36.4-46.3) 06/22/22 08:54 RDW Coeff of Arsalan 13.2 % (11.5-14.5) 06/22/22 08:54 Plt Count 309 K/uL (130-400) 06/22/22 08:54 MPV 9.4 fL (9.4-12.4) 06/22/22 08:54 Immature Gran % (Auto) 0.3 % 06/22/22 08:54 Neut % (Auto) 71.8 % 06/22/22 08:54 Lymph % (Auto) 12.1 % 06/22/22 08:54 Reeves % (Auto) 13.3 % 06/22/22 08:54 Eos % (Auto) 1.8 % 06/22/22 08:54 Baso % (Auto) 0.7 % 06/22/22 08:54 Neut # (Auto) 8.61 K/uL (1.40-6.50) H 06/22/22 08:54 Lymph # (Auto) 1.45 K/uL (1.2-3.4) 06/22/22 08:54 Reeves # (Auto) 1.59 K/uL (0.11-0.59) H 06/22/22 08:54 Eos # (Auto) 0.21 K/uL (0-0.50) 06/22/22 08:54 Baso # (Auto) 0.08 K/uL (0-0.2) 06/22/22 08:54 Immature Gran # (Auto) 0.04 K/uL (0.01-0.20) 06/22/22 08:54 PT 11.3 Seconds (9.0-12.0) 06/22/22 08:54 INR 1.0 (0.9-1.1) 06/22/22 08:54 APTT 29.9 Seconds (21.0-31.0) 06/22/22 08:54 PTT Ratio 1.1 06/22/22 08:54 Sodium 141 mmol/L (136-145) 06/22/22 08:55 Potassium 4.0 mmol/L (3.5-5.1) 06/22/22 08:55 Chloride 105 mmol/L (98-107) 06/22/22 08:55 Carbon Dioxide 30 mmol/L (21-32) 06/22/22 08:55 Anion Gap 6 (3-11) 06/22/22 08:55 BUN 10 mg/dl (6-23) 06/22/22 08:55 Creatinine 1.05 mg/dl (0.6-1.4) 06/22/22 08:55 Est Cr Clr Drug Dosing 96.4 ml/min 06/22/22 08:55 Est GFR ( Amer) 90.9 ml/min 06/22/22 08:55 Est GFR (Non-Af Amer) 78.4 ml/min 06/22/22 08:55 BUN/Creatinine Ratio 9.5 (10-20) L 06/22/22 08:55 Glucose 93 mg/dl (70-99(Fasting)) 06/22/22 08:55 Calcium 9.3 mg/dl (8.6-10.3) 06/22/22 08:55 Total Bilirubin 0.8 mg/dl (0.2-1.0) 06/22/22 08:55 AST 14 U/L (13-39) 06/22/22 08:55 ALT 19 U/L (7-52) 06/22/22 08:55 Alkaline Phosphatase 71 U/L (34-104) 06/22/22 08:55 Troponin I High Sens 4.1 pg/ml (0-20) 06/22/22 08:55 Total Protein 7.0 gm/dl (6.0-8.3) 06/22/22 08:55 Albumin 4.2 gm/dl (3.4-5.0) 06/22/22 08:55 Globulin 2.8 gm/dl (2.5-4.0) 06/22/22 08:55 Albumin/Globulin Ratio 1.5 (0.9-2) 06/22/22 08:55 Lipase 21 U/L (11-82) 06/22/22 08:55 SARS-CoV-2, RNA, NAAT NEGATIVE (NEGATIVE) 06/22/22 11:02 Impressions Chest CTA 06/22/22 08:38 CT angio chest PE protocol CT DOSE: 929.95 mGy.cm HISTORY: 56 years-old Male with Chest Pain, eval for PE. Acute chest pain with shortness of breath TECHNIQUE: Multiple CTA images of the chest were obtained after the intravenous administration of 105 ml Optiray. Coronal and sagittal MIPS were obtained from the axial data set and were submitted for review. All measurements were obtained according to NASCET criteria. A dose lowering technique was utilized adhering to the principles of ALARA. COMPARISON: CT abdomen and pelvis 01/05/2018, chest CT 10/30/2015 FINDINGS: CTA: Mild/moderate cardiomegaly. Mediastinal lipomatosis. Mild to moderate coronary artery calcifications. No thoracic aortic aneurysm. Limited examination secondary to respiratory motion artifact and contrast bolus timing. Bibasilar segmental and subsegmental pulmonary emboli are most pronounced in the right middle and left lower lobes. No central pulmonary emboli or evidence of right heart strain. CT CHEST: No thyroid nodule or lymphadenopathy identified. Trace right and small left pleural effusions. No pneumothorax. Mild (right bibasilar groundglass and consolidative opacities. Benign 5 mm solid nodule in the left lower lobe, image 175 series 4 is stable from prior. No suspicious pulmonary nodules or mass is identified. Stable benign 4 mm nodule right lower lobe, image 163. Cholecystectomy. Hepatic steatosis. No acute processes of the imaged upper abdomen. Unremarkable soft tissues. Partially imaged cervical spinal fusion hardware. Degenerative changes of the shoulders and spine. IMPRESSION: 1. Bilateral segmental and subsegmental pulmonary emboli. 2. Small left and trace right pleural effusions. 3. Mild bibasilar opacities, left greater than right favor atelectasis. Small developing pulmonary infarct(s) could appear similarly. 4. Hepatic steatosis. ACT 112: Negative or not required by law. The above report was generated using voice recognition software. It may contain grammatical, syntax or spelling errors. Electronically signed by: Anil Baeza M.D. 06/22/2022 10:44 AM 0/e Neuro: AAOx4, PERRLA, HEENT: head normocephalic, CV: S1/S2 +. no murmurs Resp: Air entry present bilaterally GI: Abdomen soft non tender Musculoskeletal: non tender Skin:no rashes Psych: normal affect
[2022-06-22] MEDS ORDERED: ACETAMINOPHEN 325 MG TAB PO PRN (13:25)
[2022-06-22] MEDS: RIVAROXABAN 15 MG TAB PO SCH (20:39)
[2022-06-22] MEDS ORDERED: APIXABAN 5 MG TABLET PO SCH (21:00)
[2022-06-23 07:22] LABS: Basophils # (auto) 0.08 K/uL (0-0.2); Basophils % (auto) 0.8 %; Eosinophils # (auto) 0.16 K/uL (0-0.50); Eosinophils % (auto) 1.5 %; Hematocrit (blood only) 47.6 % (42.0-52.0); Hemoglobin 15.8 g/dl (14.0-18.0); Immature Granulocytes # (auto) 0.06 K/uL (0.01-0.20); Immature Granulocytes % (auto) 0.6 %; Lymphocytes # (auto) 1.29 K/uL (1.2-3.4); Lymphocytes % (auto) 12.2 %; Mean Corpuscular Hgb Conc 33.2 g/dL (32.0-36.0); Mean Corpuscular Volume 87.3 fL (80.0-100.0); Mean Platelet Volume 9.5 fL (9.4-12.4); Monocytes # (auto) 1.52 K/uL (0.11-0.59); Monocytes % (auto) 14.3 %; Neutrophils # (auto) 7.49 K/uL (1.40-6.50); Neutrophils % (auto) 70.6 %; Platelet Count 302 K/uL (130-400); RDW Coefficient of Variation 13.1 % (11.5-14.5); RDW Standard Deviation 41.9 fL (36.4-46.3); Red Blood Count 5.45 M/uL (4.70-6.10)
[2022-06-23 07:38] LABS: BUN Creatinine Ratio 12.5 (10-20); Calcium 8.7 mg/dl (8.6-10.3); Creatinine Clr Calc Pharmacy 97.3 ml/min; Est GFR (African American) 91.9 ml/min; Est GFR (Non-African American) 79.3 ml/min; Potassium 3.8 mmol/L (3.5-5.1)
[2022-06-23 08:13] LABS: Estimated Average Glucose 117 mg/dl; Hemoglobin A1C 5.7 % (4.5-5.6)
--- NOTE | 2022-06-23 08:37 | CT Scan Report ---
CT head/brain wo con CLINICAL HISTORY: 56 years-old Male with Headache. Acute headache TECHNIQUE: Multiple axial CT images of the head were obtained without contrast. A dose lowering tech nique was utilized adhering to the principles of ALARA. CT DOSE: 614.27 mGy.cm COMPARISON: None. FINDINGS: No acute intracranial hemorrhage, midline shift, intracranial mass, hydrocephalus, territorial ischem ia or abnormal extra-axial collection. The calvarium is intact. Prior bilateral lens repair. The paranasal sinuses, mastoid air cells, and m iddle ear cavities are clear. IMPRESSION: No acute intracranial abnormality. ACT 112: Negative or not required by law. The above report was generated using voice recognition software. It may contain grammatical, syntax o r spelling errors. Electronically signed by: Anil Baeza M.D. 06/23/2022 8:35 AM
[2022-06-23] MEDS: RIVAROXABAN 15 MG TAB PO SCH (09:25)
--- NOTE | 2022-06-23 12:09 | Hospitalist Progress Note ---
Date of Service June 23, 2022 Assessment & Plan (1) Bilateral pulmonary embolism: Plan: Patient is a 56 male with H/O cervical disc disease s/p ACDF, prediabetes, and dyslipidemia who presented to the ED today with two days of thoracic/left chest pain with deep breathing after being diagnosed with peroneal DVT on Wednesday and started on Eliquis. Pt reports he has been taking the Eliquis as directed and has no prior hx of clot. CTA in the ED today revealed bilateral PE though no hypoxia, pt is hemodynamically stable. Since pt was on the Eliquis only for the last three days, would not consider this a treatment failure but rather progression of known clot. Acute bilateral pulmonary embolism Subacute left lower extremity DVT --Chest CTA:Bilateral segmental and subsegmental pulmonary emboli. Small left and trace right pleural effusions. Mild bibasilar opacities, left greater than right favor atelectasis. Small developing pulmonary infarct(s) could appear similarly. Hepatic steatosis. --ECHO: EF 55 to 60%. Normal left ventricular wall thickness. Right ventricle is normal size. The right ventricle systolic function is normal as assessed by tricuspid annular plane systolic excursion. Grade 1 diastolic dysfunction.. No significant valvular pathology. --- Eliquis was initially started by outpatient PCP -- Patient did not tolerate Eliquis -- Saturating well on room air --Started on Xarelto. Tolerating it with no issues (2) Acute deep vein thrombosis (DVT) of distal end of left lower extremity: Plan: Management as above (3) Prediabetes: Plan: HbA1C: 5.7 (4) Dyslipidemia: (5) Sleep apnea: Plan: Continue CPAP Plan Code Status: Full Code Admission and Anticipated Discharge Date Admission Date: June 22, 2022 Subjective Patient is seen and examined at bedside States feeling much better today Offers no new complaints Headache resolved Denies any chest pain, dyspnea, dizziness, nausea, abdominal pain No bleeding issues while on Xarelto Saturating well on room air Discussed with patient's family at bedside No other complaints Review of Systems Review of Systems: All systems reviewed & are unremarkable except as noted in Subjective Physical Exam Physical Exam: Physical Exam: Vitals signs as noted above General Appearance:Morbidly Obese, no apparent distress Head: normocephalic, Atraumatic Eyes: normal inspection, EOMI Neck: supple, Trachea midline Respiratory/Chest: Normal breath sounds, CTA, No accessory muscle use Cardiovascular: S1, S2, No murmur Abdomen/GI:Soft, Non tender, Bowel sounds present Extremities/Musculoskeletal:normal inspection, no edema Neurologic/Psych:AAOX3, grossly no focal neurological deficits Skin: normal color, warm Results & Data Results & Data Vital Signs (Past 12 Hours) Vital Signs Temp Pulse Pulse Resp BP Pulse Ox O2 Del Method 06/23/22 11:39 36.8 C 68 14 145/75 H 95 Room Air 06/23/22 08:00 66 06/23/22 07:46 38.2 C H 65 18 131/78 94 Room Air 06/23/22 02:37 36.9 C 70 18 148/83 H 93 Room Air Laboratory Results Short CBC 06/23/22 Range/Units 06:51 WBC 10.60 (4.8-10.8) K/ul Hgb 15.8 (14.0-18.0) g/dl Hct 47.6 (42.0-52.0) % Plt Count 302 (130-400) K/uL BMP 06/23/22 06:51 Sodium 139 Potassium 3.8 Chloride 103 Carbon Dioxide 29 BUN 13 Creatinine 1.04 Glucose 118 H Calcium 8.7
--- NOTE | 2022-06-23 13:02 | Discharge Summary ---
Date of Service June 23, 2022 Admission HPI Per Admitting Provider This is a 56 y/o male with a PMH of cervical disc disease s/p ACDF, dyslipidemia, and prediabetes who presents to the ED with pain in left thoracic back and left lower chest with deep breathing for the past two days. Three days ago, on Wednesday, pt presented to PCP office with left calf pain x 3 days without specific injury or swelling. US done in office showed peroneal clot. Pt was started on Eliquis, which he reports he has been taking as prescribed although has not taken yet today. He developed a RECINOS two days ago, which he attributes as a possible side effect to the Eliquis. Ongoing, frontal region. Over the weekend, he developed pain in the left thoracic area and left lower chest with deep breathing. Denies feeling shortness of breath or sensation of heart racing or skipping beats. No prior history of DVT/PE. No recent long travel or prolonged immobilization. No recent illness. Pt's father had unexplained DVTs that were found just before surgery - no known clotting disorder. Mother had cancer but no hx of clots that pt is aware of. Admission Exam Per Admitting Provider Physical Exam Constitutional: well developed and well nourished; no acute distress Eyes: + anicteric sclerae Neck: trachea midline Respiratory: no respiratory distress and no labored breathing Auscultation: lungs clear to auscultation bilaterally; no rales, no rhonchi and no wheezes Cardiovascular: Rate/Rhythm: regular rate and regular rhythm Vessels: radial pulses present Extremities: no pedal edema Gastrointestinal (Abdomen): Inspection/Auscultation: normal bowel sounds; abdomen not distended Percussion/Palpation: abdomen soft; abdomen nontender Musculoskeletal: Head/Neck/Chest: normocephalic, head atraumatic and neck supple Skin: no jaundice Neurologic: moves all extremities; no focal motor deficits and not confused Psychiatric: A+Ox3, euthymic affect Principal Diagnosis Acute bilateral pulmonary embolism Subacute left lower extremity DVT Discharge Data Allergies Allergy/AdvReac Type Severity Reaction Status Date / Time Cipro AdvReac Unknown nausea and Verified 08/02/17 20:23 vomiting ciprofloxacin AdvReac Unknown nausea and Verified 09/04/21 13:51 vomiting metronidazole AdvReac Unknown nausea and Verified 09/04/21 13:51 vomiting Consultations 06/22/22 11:14 ED Decision to Admit Stat Procedures Performed Laboratory Results WBC 10.60 K/ul (4.8-10.8) 06/23/22 06:51 RBC 5.45 M/uL (4.70-6.10) 06/23/22 06:51 Hgb 15.8 g/dl (14.0-18.0) 06/23/22 06:51 Hct 47.6 % (42.0-52.0) 06/23/22 06:51 MCV 87.3 fL (80.0-100.0) 06/23/22 06:51 MCH 29.0 pg (25.0-34.0) 06/23/22 06:51 MCHC 33.2 g/dL (32.0-36.0) 06/23/22 06:51 RDW Std Deviation 41.9 fL (36.4-46.3) 06/23/22 06:51 RDW Coeff of Arsalan 13.1 % (11.5-14.5) 06/23/22 06:51 Plt Count 302 K/uL (130-400) 06/23/22 06:51 MPV 9.5 fL (9.4-12.4) 06/23/22 06:51 Immature Gran % (Auto) 0.6 % 06/23/22 06:51 Neut % (Auto) 70.6 % 06/23/22 06:51 Lymph % (Auto) 12.2 % 06/23/22 06:51 [place] % (Auto) 14.3 % 06/23/22 06:51 Eos % (Auto) 1.5 % 06/23/22 06:51 Baso % (Auto) 0.8 % 06/23/22 06:51 Neut # (Auto) 7.49 K/uL (1.40-6.50) H 06/23/22 06:51 Lymph # (Auto) 1.29 K/uL (1.2-3.4) 06/23/22 06:51 Shelby # (Auto) 1.52 K/uL (0.11-0.59) H 06/23/22 06:51 Eos # (Auto) 0.16 K/uL (0-0.50) 06/23/22 06:51 Baso # (Auto) 0.08 K/uL (0-0.2) 06/23/22 06:51 Immature Gran # (Auto) 0.06 K/uL (0.01-0.20) 06/23/22 06:51 PT 11.3 Seconds (9.0-12.0) 06/22/22 08:54 INR 1.0 (0.9-1.1) 06/22/22 08:54 APTT 29.9 Seconds (21.0-31.0) 06/22/22 08:54 PTT Ratio 1.1 06/22/22 08:54 Sodium 139 mmol/L (136-145) 06/23/22 06:51 Potassium 3.8 mmol/L (3.5-5.1) 06/23/22 06:51 Chloride 103 mmol/L (98-107) 06/23/22 06:51 Carbon Dioxide 29 mmol/L (21-32) 06/23/22 06:51 Anion Gap 7 (3-11) 06/23/22 06:51 BUN 13 mg/dl (6-23) 06/23/22 06:51 Creatinine 1.04 mg/dl (0.6-1.4) 06/23/22 06:51 Est Cr Clr Drug Dosing 97.3 ml/min 06/23/22 06:51 Est GFR ( Amer) 91.9 ml/min 06/23/22 06:51 Est GFR (Non-Af Amer) 79.3 ml/min 06/23/22 06:51 BUN/Creatinine Ratio 12.5 (10-20) 06/23/22 06:51 Glucose 118 mg/dl (70-99(Fasting)) H 06/23/22 06:51 Estimat Average Glucose 117 mg/dl 06/23/22 06:51 Hemoglobin A1c 5.7 % (4.5-5.6) H 06/23/22 06:51 Calcium 8.7 mg/dl (8.6-10.3) 06/23/22 06:51 Total Bilirubin 0.8 mg/dl (0.2-1.0) 06/22/22 08:55 AST 14 U/L (13-39) 06/22/22 08:55 ALT 19 U/L (7-52) 06/22/22 08:55 Alkaline Phosphatase 71 U/L (34-104) 06/22/22 08:55 Troponin I High Sens 4.7 pg/ml (0-20) 06/22/22 17:43 Total Protein 7.0 gm/dl (6.0-8.3) 06/22/22 08:55 Albumin 4.2 gm/dl (3.4-5.0) 06/22/22 08:55 Globulin 2.8 gm/dl (2.5-4.0) 06/22/22 08:55 Albumin/Globulin Ratio 1.5 (0.9-2) 06/22/22 08:55 Lipase 21 U/L (11-82) 06/22/22 08:55 SARS-CoV-2, RNA, NAAT NEGATIVE (NEGATIVE) 06/22/22 11:02 Impressions Chest CTA 06/22/22 08:38 CT angio chest PE protocol CT DOSE: 929.95 mGy.cm HISTORY: 56 years-old Male with Chest Pain, eval for PE. Acute chest pain with shortness of breath TECHNIQUE: Multiple CTA images of the chest were obtained after the intravenous administration of 105 ml Optiray. Coronal and sagittal MIPS were obtained from the axial data set and were submitted for review. All measurements were obtained according to NASCET criteria. A dose lowering technique was utilized adhering to the principles of ALARA. COMPARISON: CT abdomen and pelvis 01/05/2018, chest CT 10/30/2015 FINDINGS: CTA: Mild/moderate cardiomegaly. Mediastinal lipomatosis. Mild to moderate coronary artery calcifications. No thoracic aortic aneurysm. Limited examination secondary to respiratory motion artifact and contrast bolus timing. Bibasilar segmental and subsegmental pulmonary emboli are most pronounced in the right middle and left lower lobes. No central pulmonary emboli or evidence of right heart strain. CT CHEST: No thyroid nodule or lymphadenopathy identified. Trace right and small left pleural effusions. No pneumothorax. Mild (right bibasilar groundglass and consolidative opacities. Benign 5 mm solid nodule in the left lower lobe, image 175 series 4 is stable from prior. No suspicious pulmonary nodules or mass is identified. Stable benign 4 mm nodule right lower lobe, image 163. Cholecystectomy. Hepatic steatosis. No acute processes of the imaged upper abdomen. Unremarkable soft tissues. Partially imaged cervical spinal fusion hardware. Degenerative changes of the shoulders and spine. IMPRESSION: 1. Bilateral segmental and subsegmental pulmonary emboli. 2. Small left and trace right pleural effusions. 3. Mild bibasilar opacities, left greater than right favor atelectasis. Small developing pulmonary infarct(s) could appear similarly. 4. Hepatic steatosis. ACT 112: Negative or not required by law. The above report was generated using voice recognition software. It may contain grammatical, syntax or spelling errors. Electronically signed by: Anil Baeza M.D. 06/22/2022 10:[address] 06/23/22 07:58 CT head/brain wo con CLINICAL HISTORY: 56 years-old Male with Headache. Acute headache TECHNIQUE: Multiple axial CT images of the head were obtained without contrast. A dose lowering technique was utilized adhering to the principles of ALARA. CT DOSE: 614.27 mGy.cm COMPARISON: None. FINDINGS: No acute intracranial hemorrhage, midline shift, intracranial mass, hydrocephalus, territorial ischemia or abnormal extra-axial collection. The calvarium is intact. Prior bilateral lens repair. The paranasal sinuses, mastoid air cells, and middle ear cavities are clear. IMPRESSION: No acute intracranial abnormality. ACT 112: Negative or not required by law. The above report was generated using voice recognition software. It may contain grammatical, syntax or spelling errors. Electronically signed by: Anil Baeza M.D. 06/23/2022 8:35 AM Ordered Studies 06/22/22 08:38 CT angio chest PE protocol Stat 06/23/22 07:58 CT head/brain wo con Urgent Hospital Course (1) Bilateral pulmonary embolism: Patient is a 56 male with H/O cervical disc disease s/p ACDF, prediabetes, and dyslipidemia who presented to the ED today with two days of thoracic/left chest pain with deep breathing after being diagnosed with peroneal DVT on Wednesday and started on Eliquis. Pt reports he has been taking the Eliquis as directed and has no prior hx of clot. CTA in the ED today revealed bilateral PE though no hypoxia, pt is hemodynamically stable. Since pt was on the Eliquis only for the last three days, would not consider this a treatment failure but rather progression of known clot. Acute bilateral pulmonary embolism Subacute left lower extremity DVT --Chest CTA:Bilateral segmental and subsegmental pulmonary emboli. Small left and trace right pleural effusions. Mild bibasilar opacities, left greater than right favor atelectasis. Small developing pulmonary infarct(s) could appear similarly. Hepatic steatosis. --ECHO: EF 55 to 60%. Normal left ventricular wall thickness. Right ventricle is normal size. The right ventricle systolic function is normal as assessed by tricuspid annular plane systolic excursion. Grade 1 diastolic dysfunction.. No significant valvular pathology. --- Eliquis was initially started by outpatient PCP -- Patient did not tolerate Eliquis -- Saturating well on room air --Started on Xarelto. Tolerating it with no issues (2) Acute deep vein thrombosis (DVT) of distal end of left lower extremity: Management as above (3) Prediabetes: HbA1C: 5.7 (4) Dyslipidemia: (5) Sleep apnea: Continue CPAP Plan Code Status: Full Code Total Time Total Time Spent Total Time Spent (In Minutes): 49 minutes Discharge Plan Discharge Items Patient Disposition: Home - Self-Care Reason For Visit: BILATERAL PE Discharge Diagnosis: Acute bilateral pulmonary embolism Subacute left lower extremity DVT Activity: Per Instructions section Exercise/Sports: Gradually increase as tolerated Non-emergency contact: Primary Care Provider Call non-emergency contact if: you have any medication questions, your symptoms worsen, your pain is concerning for you and you have a fever Follow-up/Referrals: Kaya Mckeon MD [Primary Care Provider] - (Date & Time 06/29/2022 11:20 AM Provider Kaya Mckeon MD Department Family Medicine [facility] ) Diet: Heart Healthy Add Attending Provider Instructions: Follow-up with your primary care physician on 06/29/2022 11:20 AM --- Get hypercoagulable work-up as outpatient to identify risk factors for clotting as per recommendations by your primary care physician. --- Take Xarelto with food as advised. -- Takes Xarelto 15 mg two times a day for 3 weeks and then take 20 mg once daily. Seek immediate medical attention if your symptoms reoccur or worsen Please take all medications as instructed on discharge list below. Please call if you have any questions or problems. You can reach a [facility] hospitalist on duty at [facility] 24 hours a day by calling [phone] Pending Studies at Discharge: No Stand-Alone Forms: My [facility], Smoking Cessation Medications and DC Order Prescriptions: New Xarelto DVT-PE Treat 30d Start 15 mg (42)- 20 mg (9) tablets,dose pack 1 ea PO UD Qty: 51 1RF Rx Instructions: 1 ea orally; Continued CPAP Machine Misc See Rx Instructions .ROUTE .COMPLEX Qty: 1 0RF Rx Instructions: 11 cm of water, [place] [facility] patient. [place]; triamcinolone acetonide 0.5 % cream 1 applic topical DAILY PRN (Reason: Unknown) Discontinued Eliquis 5 mg tablet See Rx Instructions .ROUTE .COMPLEX Rx Instructions: FIRST WEEK PLEASE TAKE 2 TABLETS TWICE A DAY THEN 1 TABLET TWICE A DAY. Discharge Orders: Discharge Order (Routine); Ordered 06/23/22 Ordered By: Fernie Franks Admission Data Admit Date/Time: 06/22/22 11:48 Attending Provider: Fernie Franks Admit Provider: Toby Norwood Primary Care Provider: Kaya Mckeon Other Providers: Toby Norwood
--- NOTE | 2022-06-23 22:56 | Electrocardiogram Report ---
Test Reason : Blood Pressure : / mmHG Vent. Rate : 071 BPM Atrial Rate : 071 BPM P-R Int : 166 ms QRS Dur : 090 ms QT Int : 378 ms P-R-T Axes : 009 033 032 degrees QTc Int : 410 ms Normal sinus rhythm Low voltage QRS Cannot rule out Anterior infarct , age undetermined Abnormal ECG When compared with ECG of 23-DEC-2016 16:08, No significant change was found Confirmed by Carmine Godwin ([id number]) on 06/23/2022 10:56:04 PM Referred By: Lorena Mckeon Confirmed By:Carmine Godwin
[2022-07-13] MEDS ORDERED: RIVAROXABAN 20 MG TAB PO SCH (16:30)
== END 2022-06-23 13:53 | disposition home or self-care (01) ==
LOC: ED 08:09 → SUATTDRO 11:48 → 2S 11:48 → INTOOBSV 11:48 → 2S 12:59